=== PATIENT | male | born 1980 | race Caucasian/White ===

== ENCOUNTER 2017-03-24 11:05 | Emergency (ER) | payer OTHER ==
[2017-03-24] MEDS ORDERED: HYOSCYAMINE SULFATE 0.125 MG TAB PO ONE (11:41)
[2017-03-24] MEDS ORDERED: ONDANSETRON 4 MG/2 ML VIAL IVP ONE (11:41)
[2017-03-24] MEDS ORDERED: NS 2,000 ML IV ONE (11:41)
--- NOTE | 2017-03-24 11:46 | EDPHY ---
H & P Time Seen by Provider: 03/24/17 11:23 HPI/ROS: This patient complains of vomiting and diarrhea. He has associated crampy abdominal pain-diffuse. His symptoms started yesterday at 11:00 a.m. with vomiting several episodes until 2:00 p.m.. Symptoms then resolved until 7:00 a.m. this morning when he developed recurrent vomiting-several episodes of yellow appearing emesis. He also developed onset of diarrhea this morning with several episodes of loose watery stool. He is unable tolerating p. o. fluids or food. He notes no exacerbating or alleviating factors for his symptoms. He reports his crampy abdominal pain is moderate in severity and comes in waves. ROS: No high fevers or chills. He does report low-grade subjective fevers. No other constitutional symptoms except myalgias-mild and diffuse HEENT: Nasal congestion over the past week. Mild sore throat Pulmonary: No coughing. No shortness of breath Cardiovascular: No heart palpitations or lightheadedness. GI: No hematemesis or dark tarry stools/blood in stools : No flank pain. He has not been able urinate this morning. He has noticed any urinary symptoms or testicle pain. Integumentary: No skin rash. 10 point ROS is otherwise negative. Source: Patient Exam Limitations: No limitations - Personal History Current Tetanus Diphtheria and Acellular Pertussis (TDAP): Yes Tetanus Vaccine Date: 2014 - Medical/Surgical History PMH: IBS Gastritis Hx Asthma: No Hx Chronic Respiratory Disease: No Hx Diabetes: No Hx Cardiac Disease: No Hx Renal Disease: No Hx Cirrhosis: No Hx Alcoholism: No Hx HIV/AIDS: No Hx Splenectomy or Spleen Trauma: No Other PMH: anxiety, adhd; L hand fx; wisdom teeth extraction - Family History Significant Family History: No pertinent family hx - Social History Smoking Status: Former smoker Alcohol Use: Rarely Drug Use: None Additional Social History: No recent foreign travel. No suspect food His had cold symptoms at the end of the week but no GI symptoms. - Physical Exam Exam: General Appearance: Alert, no distress. Eyes: Pupils equal and round no pallor or injection. ENT, Mouth: Mucous membranes dry. Respiratory: There are no retractions, lungs are clear to auscultation. Cardiovascular: Regular rate and rhythm. Gastrointestinal: Normoactive, soft, diffuse mild tenderness with no guarding or rebound. : No testicular tenderness Back: No CVA tenderness Neurological: Alert with no focal deficits appreciated. Skin: Warm and dry, no rashes. Musculoskeletal: Neck is supple nontender. Extremities are symmetrical, full range of motion. Psychiatric: Mood and affect normal DIFFERENTIAL DIAGNOSIS: After history and physical exam differential diagnosis was considered for viral gastroenteritis, dehydration, IBS flare, food poisoning Constitutional: Initial Vital Signs Temperature (C) 36.4 C 03/24/17 11:13 Heart Rate 77 03/24/17 11:13 Respiratory Rate 20 03/24/17 11:13 Blood Pressure 149/89 H 03/24/17 11:13 O2 Sat (%) 98 03/24/17 11:13 O2 Delivery Mode Room Air Allergies/Adverse Reactions: No Known Allergies Allergy (Verified 03/24/17 11:12) Home Medications: Medication Instructions Recorded Adderall Xr 20 mg Capsule 03/24/17 HYOSCYAMINE SULFATE [LEVSIN-SL] 0.125 - 0.25 mg SL Q6 PRN #20 03/24/17 tab.subl Ondansetron Odt [Zofran Odt] 4 - 8 mg PO Q4PRN PRN #4 tab 03/24/17 Prozac 40 mg 03/24/17 Xanax 03/24/17 Medical Decision Making ED Course/Re-evaluation: IV normal saline bolus x2 L Zofran 4 mg IV with relief of nausea Levsin p.o. Toradol IV with relief of headache, myalgias and abdominal cramps. Patient's basic metabolic panel is consistent with dehydration. No significant electrolyte abnormalities are noted At 1:20 p.m. the patient feels well with resolution of his nausea and cramping. He tolerates p.o. fluids without emesis. I counseled him regarding viral gastroenteritis. - Data Points Laboratory Results: Laboratory Results 03/24/17 11:50 03/24/17 11:50 Sodium 141 mEq/L mEq/L (134-144) Potassium 4.4 mEq/L mEq/L (3.5-5.2) Chloride 106 mEq/L mEq/L (97-110) Carbon Dioxide 18 mEq/l L mEq/l (22-31) Anion Gap 17 mEq/L H mEq/L (8-16) BUN 11 mg/dL mg/dL (7-23) Creatinine 1.0 mg/dL mg/dL (0.7-1.3) Estimated GFR > 60 Glucose 100 mg/dL mg/dL (70-100) Calcium 9.9 mg/dL mg/dL (8.5-10.4) Medications Given: Discontinued Medications Diphenhydramine HCl (Benadryl Injection) 25 mg IVP EDNOW ONE Stop: 03/24/17 12:06 Last Admin: 03/24/17 13:31 Dose: Not Given Hyoscyamine Sulfate (Levsin, Hyomax-Sl) 0.25 mg PO ONCE ONE Stop: 03/24/17 11:42 Last Admin: 03/24/17 12:20 Dose: 0.25 mg Sodium Chloride (Ns) 2,000 mls @ 0 mls/hr IV ONCE ONE PRN Reason: Wide Open Stop: 03/24/17 11:42 Last Admin: 03/24/17 11:30 Dose: 2,000 mls Ketorolac Tromethamine (Toradol) 30 mg IVP EDNOW ONE Stop: 03/24/17 12:33 Last Admin: 03/24/17 12:40 Dose: 30 mg Metoclopramide HCl (Reglan Injection) 5 mg IVP EDNOW ONE Stop: 03/24/17 12:05 Last Admin: 03/24/17 13:30 Dose: Not Given Ondansetron HCl (Zofran) 4 mg IVP EDNOW ONE Stop: 03/24/17 11:42 Last Admin: 03/24/17 11:45 Dose: 4 mg Departure - Departure Disposition: Home, Routine, Self-Care Clinical Impression: Viral gastroenteritis, Dehydration, Abdominal cramping Condition: Good Instructions: Gastroenteritis (ED) Additional Instructions: Diagnosis: 1. Viral gastroenteritis 2. Dehydration 3. Abdominal cramping Plan: Drink plenty fluids Light diet Zofran for nausea vomiting if needed Levsin for cramping if needed Tylenol or ibuprofen for headaches and general aches as needed Your symptoms should improve over the next 1-3 days Return for any significant worsening despite treatment plan. Referrals: KAVITHA POLANCO [Primary Care Provider] - As per Instructions Stand Alone Forms: Work Excuse Prescriptions: HYOSCYAMINE SULFATE [LEVSIN-SL] 0.125 - 0.25 mg SL Q6 PRN #20 tab.subl PRN Reason: abdominal cramping Ondansetron Odt [Zofran Odt] 4 - 8 mg PO Q4PRN PRN #4 tab PRN Reason: Vomiting
[2017-03-24] MEDS ORDERED: METOCLOPRAMIDE 10 MG/2 ML VIAL IVP ONE (12:04)
[2017-03-24 12:10] LABS: ANION GAP 17 mEq/L (8-16); CALCIUM 9.9 mg/dL (8.5-10.4); CARBON DIOXIDE 18 mEq/l (22-31); CHLORIDE 106 mEq/L (97-110); GLOMERULAR FILTRATION RATE > 60; GLUCOSE 100 mg/dL (70-100); POTASSIUM 4.4 mEq/L (3.5-5.2); SODIUM 141 mEq/L (134-144)
[2017-03-24] MEDS ORDERED: KETOROLAC 30 MG/1 ML SDV IVP ONE (12:32)
[2017-03-24 13:56] VITALS: BP 120/62; PULSE 70; RESP 14; TEMP 98.2; O2SAT 94
== END 2017-03-24 13:45 | disposition home or self-care (01) ==
LOC: CED 11:05
DX: A08.4 Viral intestinal infection, unspecified (principal); E86.0 Dehydration; Z87.891 Personal history of nicotine dependence
CPT/HCPCS: 80048-PO; 96374; J1885; J2405

== ENCOUNTER 2017-03-26 10:01 | Inpatient (IN) | payer OTHER ==
--- NOTE | 2017-03-26 10:14 | EDPHY ---
H & P Stated Complaint: Vomiting, diarrhea, and generalized abdominal cramping x 2 days Time Seen by Provider: 03/26/17 10:06 HPI/ROS: CHIEF COMPLAINT: Abdominal pain, vomiting, diarrhea. HISTORY OF PRESENT ILLNESS: The patient is a 36-year-old male with history of irritable bowel syndrome, who presents with severe abdominal pain, vomiting, and diarrhea. The patient was seen here 2 days ago for abdominal cramping, vomiting, and diarrhea. At that time he was having diarrhea every 5-7 minutes. He received IV fluids, Levsin, Toradol, and Zofran in the ED and symptoms improved. Yesterday he felt better with very few episodes of diarrhea. He was able to eat and drink a bit. Around 2am this morning, he started vomiting. Vomit is orange colored. He developed severe crampy abdominal pain 4 hours ago, around 6am this morning. He continues to have diarrhea, but with less frequency and he states it is mostly gas. No history of abdominal surgery. REVIEW OF SYSTEMS: A ten point review of systems was performed and is negative with the exception of the items mentioned in the HPI. Source: Patient Exam Limitations: No limitations - Personal History Current Tetanus Diphtheria and Acellular Pertussis (TDAP): Yes Tetanus Vaccine Date: 2014 - Medical/Surgical History Hx Asthma: No Hx Chronic Respiratory Disease: No Hx Diabetes: No Hx Cardiac Disease: No Hx Renal Disease: No Hx Cirrhosis: No Hx Alcoholism: No Hx HIV/AIDS: No Hx Splenectomy or Spleen Trauma: No Other PMH: IBS,anxiety, adhd; L hand fx; wisdom teeth extraction - Social History Smoking Status: Former smoker Alcohol Use: Rarely Drug Use: None Additional Social History: . Works in construction. - Physical Exam Exam: General Appearance: Alert. Appears uncomfortable. Vital signs reviewed. Eyes: Pupils equal and round, no conjunctival injection, no discharge. Anicteric. ENT, Mouth: Mucous membranes are moist, no oropharyngeal erythema or edema. Neck: No lymphadenopathy, supple. Respiratory: Lungs are clear to auscultation; no wheezes, rales, or rhonchi. Cardiovascular: Regular rate and rhythm; no murmur, rub, or gallop. Gastrointestinal: Bowel sounds present. Abdomen is moderately, diffusely tender without guarding. Mild distension. Skin: Warm and dry, no rashes on exposed skin, normal color. Back: Nontender to palpation over the thoracolumbar spine. No CVAT. Extremities: No lower extremity edema, no calf tenderness or swelling. Neurological: Alert and oriented. Moving all four extremities easily and equally. Psychiatric: Normal affect. Constitutional: Initial Vital Signs Temperature (C) 36.5 C 03/26/17 10:07 Heart Rate 69 03/26/17 10:07 Respiratory Rate 18 03/26/17 10:07 Blood Pressure 125/78 H 03/26/17 10:07 O2 Sat (%) 99 03/26/17 10:07 O2 Delivery Mode Room Air Allergies/Adverse Reactions: No Known Allergies Allergy (Verified 03/26/17 10:11) Home Medications: Medication Instructions Recorded ALPRAZolam [Xanax 0.5 MG (*)] 0.5 mg PO DAILY PRN 03/26/17 Amphet Asp and D/Amphet [Adderall 10 mg PO DAILY@0800 03/26/17 10 MG (*)] Dextroamphetamine/Amphetamine 20 mg PO DAILY@1100 03/26/17 [Adderall Xr 20 mg Capsule] Fluoxetine HCl [Prozac 40 mg] 40 mg PO HS 03/26/17 Acetaminophen [Tylenol 325mg (*)] 650 mg PO Q4HRS PRN #0 tab 03/27/17 Hyoscyamine Sulfate [Levsin] 0.25 mg PO Q6HRS PRN #1 03/27/17 Oxycodone HCl 5 mg PO Q6H PRN #10 capsule 03/27/17 Medical Decision Making - Diagnostics Imaging Results: CT of the abdomen and pelvis reported to me by Dr. Gibson. I reviewed the images. The CT shows evidence of SBO. ED Course/Re-evaluation: The patient is a 36-year-old male with history of IBS presenting with abdominal pain, vomiting, and diarrhea. The patient was seen here 2 days ago with similar symptoms. He was diagnosed with gastroenteritis. He received Zofran, toradol, and Levsin and his symptoms improved. Yesterday the patient felt better. Around 2am this morning the patient's emesis returned. He developed abdominal pain around 6am. The patient tried Zofran which slightly improved his nausea and vomiting. He also took a Levsin. Patient appears uncomfortable. He had an episode of diarrhea in the ED, prior to being brought back to the exam room. On examination the patient has moderately diffuse abdominal tenderness without guarding. IV was established. The patient received IV fluids, 0.5mg Dilaudid, and 4mg Zofran. Lab work ordered. He is afebrile. Blood pressure is normal. He is not tachycardic. He does have dry oral mucosa and states that he has not been able to keep much down over the last few days. 10:48 a.m.: I reevaluated the patient. His pain is slightly improved. He continues to have diffuse abdominal tenderness. 11:03 p.m.: The patient is requesting more pain medication. An additional 0.5mg Dilaudid was ordered. 11:15 a.m.: I reexamined the patient, abdomen is still moderately, diffusely tender. Plan to CT abdomen. 11:45 a.m.: Radiology results were phoned to me by Dr. Gibson. CT of the abdomen /pelvis shows small bowel obstruction. I viewed the images myself on the PACS system. Please see the full radiology report in the imaging section. 11:48 a.m.: I discussed findings with the patient. Patient agrees with the plan for admission. He will be transported emergently via EMS. Other he reports having had a diarrheal stool when he arrived in the waiting room, he has not had flatus or stool since. He has not vomited. 11:55 a.m.: I consulted Dr. Ying, General surgery. Will hold off on NG tube for now. If patient vomits he will need NGT drainage. 12:35 p.m.: The patient will be admitted to the hospitalist, Dr. Lowery. The patient received an additional 0.5mg Dilaudid IV. Differential Diagnosis: Abdominal pain including but not limited to appendicitis, cholecystitis, gastritis, gastroenteritis, and urinary tract infection. - Data Points Laboratory Results: Laboratory Results 03/26/17 10:30 03/26/17 10:30 Medications Given: Discontinued Medications Amphetamine/Dextroamphetamine (Adderall) 20 mg PO DAILY@1100 [facility] Stop: 09/23/17 10:59 Last Admin: 03/27/17 11:34 Dose: 20 mg Fluoxetine HCl (Prozac) 40 mg PO HS [facility] Stop: 09/22/17 22:29 Last Admin: 03/26/17 22:20 Dose: 40 mg Hydromorphone HCl (Dilaudid) 0.5 mg IVP EDNOW ONE Stop: 03/26/17 10:29 Last Admin: 03/26/17 10:35 Dose: 0.5 mg Hydromorphone HCl (Dilaudid) 0.5 mg IVP EDNOW ONE Stop: 03/26/17 11:04 Last Admin: 03/26/17 11:05 Dose: 0.5 mg Hydromorphone HCl (Dilaudid) 0.5 mg IVP EDNOW ONE Stop: 03/26/17 12:37 Last Admin: 03/26/17 12:50 Dose: 0.5 mg Hydromorphone HCl (Dilaudid) 0.2 - 0.4 mg IVP Q4HRS PRN PRN Reason: Pain, Severe Unable to Take PO Stop: 04/05/17 14:45 Last Admin: 03/26/17 16:03 Dose: 0.4 mg Sodium Chloride (Ns) 1,000 mls @ 0 mls/hr IV ONCE ONE PRN Reason: Wide Open Stop: 03/26/17 10:29 Last Admin: 03/26/17 10:33 Dose: 1,000 mls Sodium Chloride (Ns) 1,000 mls @ 0 mls/hr IV ONCE ONE PRN Reason: Wide Open Stop: 03/26/17 10:29 Last Admin: 03/26/17 11:45 Dose: 1,000 mls Sodium Chloride (Ns) 1,000 mls @ 125 mls/hr IV CONT LILI Stop: 09/22/17 14:59 Last Admin: 03/27/17 10:30 Dose: 1,000 mls Ondansetron HCl (Zofran) 4 mg IVP EDNOW ONE Stop: 03/26/17 10:29 Last Admin: 03/26/17 10:35 Dose: 4 mg Ondansetron HCl (Zofran) 4 mg IVP Q4HRS PRN PRN Reason: Nausea/Vomiting, Can't Take PO Stop: 09/22/17 14:45 Last Admin: 03/26/17 16:03 Dose: 4 mg Departure - Departure Disposition: [facility] Clinical Impression: Small bowel obstruction Condition: Fair Report Scribed for: Vickie Grace Report Scribed by: Louisa Mead Date of Report: 03/26/17 Time of Report: 10:32 Physician Review and Approval Statement: 03/26/17 10:14 Portions of this note were transcribed by the medical record librarian. I, Dr. Vickie Grace, personally performed the history, physical exam, and medical decision- making; and confirmed the accuracy of the information in the transcribed note.
[2017-03-26] MEDS ORDERED: ONDANSETRON 4 MG/2 ML VIAL IVP ONE (10:28)
[2017-03-26] MEDS ORDERED: HYDROmorphONE/DILAUDID 1 MG/ML SYR IVP ONE ×3 (10:28→12:36)
[2017-03-26] MEDS ORDERED: NS 1,000 ML IV ONE ×2 (10:28)
[2017-03-26 10:37] LABS: % IMMATURE GRANULYOCYTES 0.3 % (0.0-1.1); ABSOLUTE IMMATURE GRANULOCYTES 0.05 10^3/uL (0.00-0.10); ADD DIFF? NO; ADD MORPH? NO; ADD SCAN? NO; ATYPICAL LYMPHOCYTE FLAG 20 (0-99); FRAGMENT RBC FLAG 0 (0-99); HEMATOCRIT 46.4 % (40.0-51.0); LEFT SHIFT FLG 0 (0-99); LIPEMIA HEMOLYSIS FLAG 90 (0-99); MEAN CELL HEMOGLOBIN 29.7 pg (27.9-34.1); MEAN CELL HEMOGLOBIN CONCENTR. 34.5 g/dL (32.4-36.7); MEAN CELL VOLUME 86.2 fL (81.5-99.8); MEAN PLATELET VOLUME 10.3 fL (8.7-11.7); PLATELET CLUMPS FLAG 0 (0-99); PLATELET COUNT 321 10^3/uL (150-400); RED BLOOD CELL COUNT 5.38 10^6/uL (4.40-6.38); RED CELL DISTRIBUTION WIDTH 12.3 % (11.5-15.2)
[2017-03-26 10:51] LABS: ALANINE AMINOTRANSFERASE 46 IU/L (21-72); ALBUMIN 4.1 g/dL (3.5-5.0); ALKALINE PHOSPHATASE 132 IU/L (38-126); ANION GAP 17 mEq/L (8-16); ASPARTATE AMINOTRANSFERASE 28 IU/L (17-59); BILIRUBIN,TOTAL 0.5 mg/dL (0.1-1.4); BILIRUBIN-CONJUGATED 0.3 mg/dL (0.0-0.5); BILIRUBIN-UNCONJUGATED 0.2 mg/dL (0.0-1.1); CALCIUM 9.3 mg/dL (8.5-10.4); CARBON DIOXIDE 21 mEq/l (22-31); CHLORIDE 106 mEq/L (97-110); CREATININE 0.9 mg/dL (0.7-1.3); GLOMERULAR FILTRATION RATE > 60; GLUCOSE 91 mg/dL (70-100); POTASSIUM 4.2 mEq/L (3.5-5.2); SODIUM 144 mEq/L (134-144); TOTAL PROTEIN 7.6 g/dL (6.3-8.2)
[2017-03-26] MEDS ORDERED: IOPAMIDOL (ISOVUE-300) 100 ML BTL IV ONE (11:24)
[2017-03-26] MEDS ORDERED: PROMETHAZINE HCL 25 MG TAB PO PRN (14:46)
[2017-03-26] MEDS ORDERED: LORazepam 0.5 MG TAB PO PRN (14:46)
[2017-03-26] MEDS ORDERED: ACETAMINOPHEN 325 MG TAB PO PRN (14:46)
[2017-03-26] MEDS ORDERED: ONDANSETRON 4 MG/2 ML VIAL IVP PRN (14:46)
[2017-03-26] MEDS ORDERED: HYDROmorphONE/DILAUDID 1 MG/ML SYR IVP PRN (14:46)
[2017-03-26] MEDS ORDERED: ONDANSETRON DISINTEGRATING 4 MG TAB PO PRN (14:46)
[2017-03-26] MEDS ORDERED: oxyCODONE IR 5 MG TAB PO PRN (14:46)
--- NOTE | 2017-03-26 16:44 | PDGENHP ---
History and Physical - Chief Complaint abdominal pain/n/v - History of Present Illness 36 yo M hx of IBS presenting with severe abdominal pain/n/v that has been present for the last several days. He was seen in the ER initially on 03/24 and his sxs resolved with antiemetics and he was sent home. He returned today with increasing pain along with n/v and inability to tolerate PO. the pain is in the midepigastrium, is constant and severe. It is worse with eating. He has never had similar sxs in the past. He has had subjective fever and chills. He has not had a bm today and is not passing gas. His BMs prior to today have been normal fo rhim. He notes that his IBS sxs have improved since starting prozac 4 months ago. He has had a colonoscopy 3 years ago that was notable only for polyps, no e /o crohn's or UC though he has a family history of both. History Information - Allergies/Home Medication List Allergies/Adverse Reactions: No Known Allergies Allergy (Verified 03/26/17 10:11) Home Medications: Adderall Xr 20 mg Capsule 03/24/17 [Last Taken Unknown] Prozac 40 mg 03/24/17 [Last Taken Unknown] Xanax 03/24/17 [Last Taken Unknown] HYOSCYAMINE SULFATE [LEVSIN-SL] 03/26/17 [Last Taken Unknown] I have personally reviewed and updated: family history, medical history, social history, surgical history - Past Medical History psychiatric history (anxiety/depression/adhd) Additional medical history: IBS - Surgical History Additional surgical history: hand surgery - Family History Additional family history: aunts/uncles on both sides with UC/crohn's. mother with GB issues - Social History Smoking Status: Former smoker Alcohol Use: Rarely Drug Use: None Additional social history: , 2 kids Review of Systems ROS: 10pt was reviewed & negative except for what was stated in HPI & below Physical Exam Temp Pulse Resp BP Pulse Ox 36.6 C 64 20 121/73 H 97 03/26/17 16:15 03/26/17 16:15 03/26/17 16:15 03/26/17 16:15 03/26/17 16:15 Constitutional: no apparent distress, appears nourished Eyes: PERRL Ears, Nose, Mouth, Throat: moist mucous membranes, hearing normal Cardiovascular: regular rate and rhythym, no murmur, rub, or gallop, No edema Respiratory: no respiratory distress, no rales or rhonchi, clear to auscultation Gastrointestinal: tenderness, No normoactive bowel sounds, No ascites, No rebound, No distension Genitourinary: no bladder tenderness Skin: warm, normal color Musculoskeletal: full muscle strength Neurologic: AAOx3 Psychiatric: interacting appropriately, not anxious, not encephalopathic Lab Data & Imaging Review 03/26/17 10:30 03/26/17 10:30 WBC 15.95 10^3/uL (3.80-9.50) H 03/26/17 10:30 RBC 5.38 10^6/uL (4.40-6.38) 03/26/17 10:30 Hgb 16.0 g/dL (13.7-17.5) 03/26/17 10:30 Hct 46.4 % (40.0-51.0) 03/26/17 10:30 MCV 86.2 fL (81.5-99.8) 03/26/17 10:30 MCH 29.7 pg (27.9-34.1) 03/26/17 10:30 MCHC 34.5 g/dL (32.4-36.7) 03/26/17 10:30 RDW 12.3 % (11.5-15.2) 03/26/17 10:30 Plt Count 321 10^3/uL (150-400) 03/26/17 10:30 MPV 10.3 fL (8.7-11.7) 03/26/17 10:30 Neut % (Auto) 73.1 % (39.3-74.2) 03/26/17 10:30 Lymph % (Auto) 16.9 % (15.0-45.0) 03/26/17 10:30 [place] % (Auto) 8.2 % (4.5-13.0) 03/26/17 10:30 Eos % (Auto) 1.4 % (0.6-7.6) 03/26/17 10:30 Baso % (Auto) 0.1 % (0.3-1.7) L 03/26/17 10:30 Nucleat RBC Rel Count 0.0 % (0.0-0.2) 03/26/17 10:30 Absolute Neuts (auto) 11.67 10^3/uL (1.70-6.50) H 03/26/17 10:30 Absolute Lymphs (auto) 2.69 10^3/uL (1.00-3.00) 03/26/17 10:30 Absolute Monos (auto) 1.30 10^3/uL (0.30-0.80) H 03/26/17 10:30 Absolute Eos (auto) 0.22 10^3/uL (0.03-0.40) 03/26/17 10:30 Absolute Basos (auto) 0.02 10^3/uL (0.02-0.10) 03/26/17 10:30 Absolute Nucleated RBC 0.00 10^3/uL (0-0.01) 03/26/17 10:30 Immature Gran % 0.3 % (0.0-1.1) 03/26/17 10:30 Immature Gran # 0.05 10^3/uL (0.00-0.10) 03/26/17 10:30 Sodium 144 mEq/L (134-144) 03/26/17 10:30 Potassium 4.2 mEq/L (3.5-5.2) 03/26/17 10:30 Chloride 106 mEq/L (97-110) 03/26/17 10:30 Carbon Dioxide 21 mEq/l (22-31) L 03/26/17 10:30 Anion Gap 17 mEq/L (8-16) H 03/26/17 10:30 BUN 15 mg/dL (7-23) 03/26/17 10:30 Creatinine 0.9 mg/dL (0.7-1.3) 03/26/17 10:30 Estimated GFR > 60 03/26/17 10:30 Glucose 91 mg/dL (70-100) 03/26/17 10:30 Calcium 9.3 mg/dL (8.5-10.4) 03/26/17 10:30 Total Bilirubin 0.5 mg/dL (0.1-1.4) 03/26/17 10:30 Conjugated Bilirubin 0.3 mg/dL (0.0-0.5) 03/26/17 10:30 Unconjugated Bilirubin 0.2 mg/dL (0.0-1.1) 03/26/17 10:30 AST 28 IU/L (17-59) 03/26/17 10:30 ALT 46 IU/L (21-72) 03/26/17 10:30 Alkaline Phosphatase 132 IU/L (38-126) H 03/26/17 10:30 Total Protein 7.6 g/dL (6.3-8.2) 03/26/17 10:30 Albumin 4.1 g/dL (3.5-5.0) 03/26/17 10:30 Lipase 40.0 IU/L (23-300) 03/26/17 10:30 Visualized and Interpreted imaging results: Yes Interpretation: abd ct: with early or partial sbo ileum Assessment & Plan Assessment: Small bowel obstruction (Acute) 36 yo M with PMH of IBS presenting with sbo # sbo: noted on ct, improved with ngt placement. Will treat conservatively with bowel rest, ng to suction, IV fluids, antiemetics and IV opiates as needed. Surgery consulted and recs are pending. Etiology is unclear--query if his chronic abdominal issues truly inflammatory bowel disease rather than IBS and patient with strictures related to same. Will consider GI consultation pending surgery recs. Sees Dr. Dahl. # IBS: as above, on hyoscyamine and prozac which have improved his chronic issues, last colonoscopy 3 years ago, EGD many years ago. # depression/anxiety/adhd: continue op medications, all appear well controlled # leukocytosis: without s/s of infection otherwise, likely stress response in setting of above # IP status, will need more than 48 hours stay for eval/mgmt of above, high risk requiring IV opiates and close monitoring Patient new to my care. old records reviewed/summarized as above. Care plan reviewed with ER doctor as above, further hx obtained from present at bedside.
[2017-03-26] MEDS ORDERED: FLUoxetine 20 MG CAP PO SCH (22:30)
--- NOTE | 2017-03-26 23:57 | GCON ---
[f rep st] CONSULTATION REFERRING PHYSICIAN: Juan Lowery MD REASON FOR CONSULTATION: Ruled out small-bowel obstruction. HISTORY: The patient is a 36-year-old male who was in his usual state of good health until Saturday at noon (today is Saturday). He had 2 breakfast burritos for breakfast. He has not any recent mehnaz el. He has had rhinorrhea for the last 2 weeks. He has irritable bowel disease, and usually moves his bowels twice a day. He has had no prior abdominal surgery, and no prior similar symptoms. At a pproximately noon, he had the onset of 4-5 episodes of diarrhea. Saturday evening at 7-8, he develo ped nausea. He woke up overnight several times with diarrhea. Saturday morning he vomited 5-7 times, and did go to the hospital at 10 a.m. They gave him fluids, Zofran and Levsin (his usual antiperis taltic for his irritable bowel syndrome). That night he felt much better, and did have chicken brot h and slept. On Saturday morning at 4 a.m., he had the onset of approximately 6 episodes of diarrhea. One hour later, he vomited 2-3 times. Saturday he did eat tacos and pizza. At 1 a.m. Saturday sara magaña, he did have diarrhea again and vomited again. At 9 a.m., he came to the emergency room. He is a nonsmoker, but does chew tobacco. Drinks alcohol on a rare occasion. ALLERGIES: He has an adverse reaction to milk as it "hurts his stomach." MEDICATIONS: He takes Adderall 10 mg every morning, and extended release 20 mg every 10 a.m. He ta kes Prozac 40 mg at bedtime, and Xanax 0.5 mg p.r.n. PAST SURGICAL HISTORY: Include a right hand surgery for repair of extensor tendon injury, and he finn s had wisdom tooth extraction. No history of rheumatic fever, tuberculosis, hepatitis, HIV or trans fusions. REVIEW OF SYSTEMS: He has acid reflux approximately once a week. He does hay fever. He has had po lyps on colonoscopy, and he has had some rectal bleeding. His last colonoscopy was 3 years ago. He was seen at [facility]. He was [facility] to [facility] because the CAT sc an reportedly showed a small-bowel obstruction. PHYSICAL EXAMINATION: GENERAL: He is awake and alert. Additional note is made that he moved his b owels and passed gas this morning. An NG tube is in place and he has moved his bowels since arrival . The NG tube initially put 500 cc out, but he is not draining anything at this time. HEENT: Yadi andrews is normocephalic and atraumatic. NEUROLOGIC: He is awake, alert, and oriented. There are no foc al lateralizing neurologic findings. NECK: Thyroid is not enlarged. Neck is supple, nontender. L YMPH: There is no cervical, supraclavicular, axillary or inguinal lymphadenopathy. LUNGS: Clear t o auscultation. CARDIAC: Shows S1, S2 to be normal, with normal split S2. ABDOMEN: Rotund. I do not appreciate tympany or tenderness. He has normoactive bowel sounds, and does not have any herni as. LABORATORY DATA: His white count is 15,000, with 73% neutrophils. His alkaline phosphatase is elev ated at 132. On examining his CAT scan, he certainly on the CAT scan did have a stomach full of fluid, and an int ermittently dilated small bowel, with thickened small-bowel wall in the right upper quadrant, and me senteric adenitis. IMPRESSION: Understanding his course, including his antecedent upper respiratory infection , I susp ect that this is an enteritis, possibly viral or bacterial in nature, which was converted to a patte rn, which appeared on CT, to be a small-bowel obstruction due to the antiperistaltic effect of the L evsin. The fact that he is moving his bowels at this point is consistent with this supposition. I recommend that we obtain stools for enteric pathogens, that we keep his NG tube in place overnight, and that we continue hydration. If he is doing well in the morning, I would not even obtain an aparna tional flat and upright x-ray. If there is any question, then that of course would be appropriate. /[id number]/MODL
[2017-03-27] MEDS: NS 1,000 ML IV SCH ×2 (02:21→10:30)
[2017-03-27 05:15] LABS: % IMMATURE GRANULYOCYTES 0.9 % (0.0-1.1); ABSOLUTE IMMATURE GRANULOCYTES 0.08 10^3/uL (0.00-0.10); ADD DIFF? NO; ADD MORPH? NO; ADD SCAN? NO; ATYPICAL LYMPHOCYTE FLAG 50 (0-99); FRAGMENT RBC FLAG 0 (0-99); HEMATOCRIT 41.9 % (40.0-51.0); HEMOGLOBIN 14.2 g/dL (13.7-17.5); LEFT SHIFT FLG 10 (0-99); LIPEMIA HEMOLYSIS FLAG 90 (0-99); MEAN CELL HEMOGLOBIN 29.5 pg (27.9-34.1); MEAN CELL HEMOGLOBIN CONCENTR. 33.9 g/dL (32.4-36.7); MEAN CELL VOLUME 86.9 fL (81.5-99.8); MEAN PLATELET VOLUME 10.5 fL (8.7-11.7); PLATELET CLUMPS FLAG 0 (0-99); PLATELET COUNT 257 10^3/uL (150-400); RED BLOOD CELL COUNT 4.82 10^6/uL (4.40-6.38); RED CELL DISTRIBUTION WIDTH 12.5 % (11.5-15.2)
[2017-03-27 05:34] LABS: ANION GAP 8 mEq/L (8-16); CALCIUM 9.1 mg/dL (8.5-10.4); CARBON DIOXIDE 24 mEq/l (22-31); CHLORIDE 108 mEq/L (97-110); CREATININE 0.9 mg/dL (0.7-1.3); GLOMERULAR FILTRATION RATE > 60; GLUCOSE 83 mg/dL (70-100); MAGNESIUM 1.9 mg/dL (1.6-2.3); POTASSIUM 4.5 mEq/L (3.5-5.2); SODIUM 140 mEq/L (134-144)
[2017-03-27 08:16] VITALS: BP 137/79; PULSE 76; RESP 16; TEMP 97.8; O2SAT 96
[2017-03-27] MEDS ORDERED: ALPRAZolam 0.5 MG TAB PO PRN (08:28)
--- NOTE | 2017-03-27 09:57 | SOAPPROG ---
SOAP Progress Note Assessment/Plan: 03/27/17 09:53 Assessment: Doing much better! Stool virology studies positive. Abdomen soft. Plan: Try NG clamping. Subjective: I feel much better Objective: Vital Signs Temp Pulse Resp BP Pulse Ox 36.6 C 76 16 137/79 H 96 03/27/17 08:00 03/27/17 08:00 03/27/17 08:00 03/27/17 08:00 03/27/17 08:00 Microbiology 03/26/17 18:30 Gastrointestinal Tract Panel (PCR) - Final Stool Sapovirus Laboratory Results 03/27/17 04:39 03/27/17 04:39 03/26/17 03/27/17 03/28/17 05:59 05:59 05:59 Intake Total 3050 Output Total 1630 Balance 1420 - Time Spent With Patient Time Spent With Patient: 15 minutes Physical Exam - Physical Exam Abdomen: normal bowel sounds, non-tender, soft ICD10 Worksheet Patient Problems: Problems Problem Status Onset Small bowel obstruction Acute
[2017-03-27] MEDS ORDERED: ADDERALL 10 MG TAB PO SCH (11:00)
[2017-03-27] MEDS ORDERED: DEXTROAMPHETAMINE PO SCH (11:00)
[2017-03-27] MEDS ORDERED: [UNRECOGNIZED DRUG - OTHER] PO SCH (11:00)
[2017-03-27] MEDS ORDERED: AMPHETAMINE PO SCH (11:00)
--- NOTE | 2017-03-27 12:21 | HOSPPROG ---
Hospitalist Progress Note Assessment/Plan: 36 yo M w/hx of IBS presenting with n/v/abdominal pain in the setting of preceding diarrheal illness # sbo: with etiology presumed to be viral gastroenteritis complicated by levsin use leading to partial sbo likely 2/2 paralytic ileus. NGT placed yesterday with significant improvement in sxs. Overnight bowel function returned with patient passing gas and having bm, tolerated clamp trial this am without increased pain or n/v. NGT out, advancing diet. Likely can dc later today if tolerates diet. # sapovirus gastroenteritis: found on GI pathogen panel, initiated his presenting illness, is improving symptomatically and will continue conservative mgmt. As above, if tolerating po w/o recurrent n/v and so long as diarrhea does not become severe, he will likely be able to dc today. # IBS: followed by Dr. Dahl of GI, currently on levsin, holding for now but can resume in the next week as long as n/v/diarrhea completely resolved. # depression/anxiety/ADHD: continue home medications # dispo: dc home likely today so long as tolerating diet Care plan reviewed with Dr. Ying at patients bedside. Care plan reviewed with present at bedside. Subjective: patient feeling better today, pain decreased, not having n/v even when NG clamped Objective: Vital Signs Temp Pulse Resp BP Pulse Ox 36.6 C 76 16 137/79 H 96 03/27/17 08:00 03/27/17 08:00 03/27/17 08:00 03/27/17 08:00 03/27/17 08:00 Microbiology 03/26/17 18:30 Gastrointestinal Tract Panel (PCR) - Final Stool Sapovirus Laboratory Results 03/27/17 04:39 03/27/17 04:39 03/26/17 03/27/17 03/28/17 05:59 05:59 05:59 Intake Total 1000 Output Total 1130 Balance -130 awake alert anicteric op clear, ngt in place with about 1L out overnight of dark/green liquid rrr no mrg cta b soft bs present non tender no cce warm dry well perfused oriented appropriate - Time Spent With Patient Time Spent with Patient: greater than 35 minutes Time Spent with Patient: Greater than 35 minutes spent on this patients care, greater than 50% of time spent counseling, educating, and coordinating care regarding the above mentioned plan. ICD10 Worksheet Patient Problems: Problems Problem Status Onset Small bowel obstruction Acute
--- NOTE | 2017-03-27 15:11 | PDDCSUM ---
Discharge Summary Discharge Summary: Dates of service 03/26-03/27/17 Consultations: general surgery Procedures performed: abd ct Hospital course by problem: 36 yo M w/hx of IBS presenting with n/v/abdominal pain in the setting of preceding diarrheal illness # sbo: with etiology presumed to be viral gastroenteritis complicated by levsin use leading to partial sbo likely 2/2 paralytic ileus. ng out and tolerating diet without issues. # sapovirus gastroenteritis: found on GI pathogen panel, initiated his presenting illness, tolerating diet, n/v resolved # IBS: followed by Dr. Dahl of GI, currently on levsin, holding for now but can resume in the next week as long as n/v/diarrhea completely resolved. # depression/anxiety/ADHD: continue home medications DC home > 35 minutes spent in dc more than half in face to face counseling of patient and regarding dx and f/u care plan
[2017-03-28] MEDS ORDERED: ADDERALL 10 MG TAB PO SCH (08:00)
== END 2017-03-27 17:07 | disposition home or self-care (01) | DRG 392 ==
LOC: CED 10:01 → CEDHOLD 12:36 → F3E 14:28 → OBSVTOIN 14:48
PROVIDERS: ADMIT Family Medicine; ATTEND Internal Medicine
DX: A08.4 Viral intestinal infection, unspecified (principal); K56.0 Paralytic ileus; K58.9 Irritable bowel syndrome, unspecified; F41.8 Other specified anxiety disorders; F90.9 Attention-deficit hyperactivity disorder, unspecified type
CPT/HCPCS: 74177-PO; 80048-PO; 80076-PO; 83690-PO; 85025-PO; 96374; J1170; J2405; Q9967

== ENCOUNTER 2017-11-18 04:22 | Observation (INO) | payer OTHER ==
[2017-11-18] MEDS ORDERED: ONDANSETRON 4 MG/2 ML VIAL IVP ONE (04:37)
[2017-11-18] MEDS ORDERED: NS 500 ML IV ONE ×2 (04:37→04:54)
[2017-11-18 04:52] LABS: % IMMATURE GRANULYOCYTES 0.2 % (0.0-1.1); ABSOLUTE IMMATURE GRANULOCYTES 0.02 10^3/uL (0.00-0.10); ADD DIFF? NO; ADD MORPH? NO; ADD SCAN? NO; ATYPICAL LYMPHOCYTE FLAG 0 (0-99); FRAGMENT RBC FLAG 0 (0-99); HEMATOCRIT 45.9 % (40.0-51.0); HEMOGLOBIN 15.6 g/dL (13.7-17.5); LEFT SHIFT FLG 0 (0-99); LIPEMIA HEMOLYSIS FLAG 90 (0-99); MEAN CELL HEMOGLOBIN 29.2 pg (27.9-34.1); MEAN CELL VOLUME 85.8 fL (81.5-99.8); PLATELET CLUMPS FLAG 10 (0-99); PLATELET COUNT 329 10^3/uL (150-400); RED BLOOD CELL COUNT 5.35 10^6/uL (4.40-6.38); RED CELL DISTRIBUTION WIDTH 12.3 % (11.5-15.2)
[2017-11-18 05:05] LABS: ALANINE AMINOTRANSFERASE 45 IU/L (21-72); ALKALINE PHOSPHATASE 117 IU/L (38-126); ANION GAP 15 mEq/L (8-16); ASPARTATE AMINOTRANSFERASE 20 IU/L (17-59); BILIRUBIN,TOTAL 0.8 mg/dL (0.1-1.4); CALCIUM 9.5 mg/dL (8.5-10.4); CARBON DIOXIDE 19 mEq/l (22-31); CHLORIDE 106 mEq/L (97-110); CREATININE 0.8 mg/dL (0.7-1.3); GLOMERULAR FILTRATION RATE > 60; GLUCOSE 109 mg/dL (70-100); POTASSIUM 4.4 mEq/L (3.5-5.2); SODIUM 140 mEq/L (134-144); TOTAL PROTEIN 7.2 g/dL (6.3-8.2)
--- NOTE | 2017-11-18 05:09 | EDPHY ---
H & P Time Seen by Provider: 11/18/17 04:46 HPI/ROS: CC: Abdominal pain, nausea, vomiting and diarrhea for 2 days HPI: This 37-year-old male with past medical history of irritable bowel syndrome and a paralytic ileus 7 months ago thought to be due to a combination of a sapovirus as well as Levsin presents to the emergency department today for 2 days of nausea, vomiting, diarrhea as well as diffuse abdominal pain worse in the epigastric region. He states the nausea came on first and he felt hot but did not have a fever. Then he started vomiting and having diarrhea every 45 min. He states that increased yesterday when he tried to ingest an electrolyte solution. He did not seen blood in the vomit or the stool. The abdominal pain is rated at 7/10. He describes it as sharp and diffuse but worse in the epigastric region. He has not taken myyl-hyj-guudfoj medications. He is not currently taking the Levsin and has not taken it since March. He had a colonoscopy a few years ago which showed polyps but he states he had a repeat colonoscopy just last week and it was "clear." No chest, neck, jaw or arm pain. No excessive alcohol use. No ill contacts. REVIEW OF SYSTEMS: Constitutional: No fever, no chills. Eyes: No discharge. ENT: No sore throat. Respiratory: No cough, no shortness of breath. Cardiac: No chest pain, no palpitations. Gastrointestinal: SEE HPI. Genitourinary: No hematuria. Musculoskeletal: No back pain. Skin: No rashes. Neurological: No headache. Past Medical/Surgical History: PMH: Irritable Bowel Syndrome; Paralytic Ileus d/t Sapovirus combined with Levsin use PSH: Right hand Surgery FH: Aunt/Uncle with Crohn's Disease and Ulcerative Colitis. Father had pre- diabetes which has resolved. Mother - Gallbladder issues. NKDA but milk intolerant Meds: Vyvance 60mg daily; Prozac 40mg at HS (has not taken Levsin since March 2017 and has not been taking the Xanax either.) Social History: Former smoker; Rare ETOH; No marijuana or other drugs. . Smoking Status: Former smoker Physical Exam: General Appearance: Alert, mild distress. Eyes: Pupils equal and round no pallor or injection. ENT, Mouth: Mucous membranes are moist. Respiratory: There are no retractions, lungs are clear to auscultation. Cardiovascular: Regular rate and rhythm. No murmurs. Gastrointestinal: Abdomen is slightly distended, tympanic to percussion. Diffusely tender to palpation. Normal bowel sounds. No palpable masses. No rebound, guarding or rigidity. Neurological: Awake and alert, sensory and motor exams grossly normal. Skin: Warm and dry, no rashes. Musculoskeletal: Neck is supple nontender. Extremities are symmetrical, full range of motion. Psychiatric: Patient is oriented X 3, there is no agitation. DIFFERENTIAL DIAGNOSIS: After history and physical exam differential diagnosis was considered for [viral gastroenteritis, bacterial gastroenteritis, irritable bowel, paralytic ileus, bowel obstruction. Inflammatory bowel disease unlikely due to normal colonoscopy less than a week ago.] Constitutional: Initial Vital Signs Temperature (C) 98.1 F 11/18/17 04:34 Heart Rate 87 11/18/17 04:34 Respiratory Rate 16 11/18/17 04:34 Blood Pressure 137/74 H 11/18/17 04:34 O2 Sat (%) 95 11/18/17 04:34 O2 Delivery Mode Room Air Allergies/Adverse Reactions: No Known Allergies Allergy (Verified 11/18/17 04:32) Home Medications: Medication Instructions Recorded Fluoxetine HCl [Prozac 40 mg] 40 mg PO HS 03/26/17 Acetaminophen [Tylenol 325mg (*)] 650 mg PO Q4HRS PRN #0 tab 03/27/17 Prozac 10 MG (*) 11/18/17 Vyvanse 11/18/17 Medical Decision Making - Diagnostics Imaging Results: Plain films of abdomen show multiple air/fluid levels with a dilated loop of bowel in central abdomen by my read. CT Abd/Pelvis with contrast verbal by Dr. Gibson (please review final dictated report): Partial small bowel obstruction with dilated loops of bowel in the left upper quadrant, proximal jejunum, measuring 3.2 cm. The terminal ileum is decompressed. No free air or abscess. Imaging: I viewed and interpreted images myself ED Course/Re-evaluation: The patient was re-evaluated and he is feeling somewhat better. No episodes of vomiting or diarrhea while in the ER after receiving Zofran. The patient also received a L of IV fluids and Toradol 15mg IVP. His CBC showed a minimally elevated white blood cell count and a monocytosis, his chemistry panel was remarkable for only a mild a decrease in his bicarb (19). His lipase and liver function tests are normal. Plain films of the abdomen showed dilated loops of bowel in multiple air-fluid levels. A CT scan of the abdomen and pelvis per verbal report from radiologist, Dr. Gibson (please review final dictated report) , shows a partial small bowel obstruction with 3.2 cm dilated loops of bowel in the left upper quadrant, proximal jejunum. The terminal ileum is decompressed. There is no free air or abscess. The patient has elected to drive himself by private operating vehicle to the [facility] for observation. He understands he is to remain NPO and make no stops on the way. He understands the risks of transporting himself to the other facility. The hospitalist, Dr. Courtney Bella, [facility] contact General Surgery once the patient arrives at the [facility]. Consult/Admit Bed Type: Hospitalist Courtney Bella/General Medical OBS - Data Points Laboratory Results: Laboratory Results 11/18/17 04:45 11/18/17 11/18/17 04:45 04:45 WBC 10.47 10^3/uL H 10^3/uL (3.80-9.50) RBC 5.35 10^6/uL 10^6/uL (4.40-6.38) Hgb 15.6 g/dL g/dL (13.7-17.5) Hct 45.9 % % (40.0-51.0) MCV 85.8 fL fL (81.5-99.8) MCH 29.2 pg pg (27.9-34.1) MCHC 34.0 g/dL g/dL (32.4-36.7) RDW 12.3 % % (11.5-15.2) Plt Count 329 10^3/uL 10^3/uL (150-400) MPV 10.0 fL fL (8.7-11.7) Neut % (Auto) 72.1 % % (39.3-74.2) Lymph % (Auto) 16.9 % % (15.0-45.0) [place] % (Auto) 8.6 % % (4.5-13.0) Eos % (Auto) 2.1 % % (0.6-7.6) Baso % (Auto) 0.1 % L % (0.3-1.7) Nucleat RBC Rel Count 0.0 % % (0.0-0.2) Absolute Neuts (auto) 7.55 10^3/uL H 10^3/uL (1.70-6.50) Absolute Lymphs (auto) 1.77 10^3/uL 10^3/uL (1.00-3.00) Absolute Monos (auto) 0.90 10^3/uL H 10^3/uL (0.30-0.80) Absolute Eos (auto) 0.22 10^3/uL 10^3/uL (0.03-0.40) Absolute Basos (auto) 0.01 10^3/uL L 10^3/uL (0.02-0.10) Absolute Nucleated RBC 0.00 10^3/uL 10^3/uL (0-0.01) Immature Gran % 0.2 % % (0.0-1.1) Immature Gran # 0.02 10^3/uL 10^3/uL (0.00-0.10) Sodium Pending Potassium Pending Chloride Pending Carbon Dioxide Pending Anion Gap Pending BUN Pending Creatinine Pending Estimated GFR Pending Glucose Pending Calcium Pending Total Bilirubin Pending AST Pending ALT Pending Alkaline Phosphatase Pending Total Protein Pending Albumin Pending Lipase Pending Medications Given: Sodium Chloride (Ns) 500 mls @ 1,000 mls/hr IV ONCE ONE PRN Reason: Protocol Stop: 11/18/17 05:06 Last Admin: 11/18/17 04:44 Dose: 500 mls Discontinued Medications Sodium Chloride (Ns) 500 mls @ 0 mls/hr IV EDNOW ONE; Wide Open PRN Reason: Protocol Stop: 11/18/17 04:55 Last Admin: 11/18/17 04:56 Dose: 500 mls Ondansetron HCl (Zofran) 4 mg IVP EDNOW ONE Stop: 11/18/17 04:38 Last Admin: 11/18/17 04:44 Dose: 4 mg Departure - Departure Disposition: [place] [facility] Clinical Impression: Partial small bowel obstruction Condition: Good Instructions: Bowel Obstruction (ED) Additional Instructions: Go directly to the [facility] as instructed. No stops or anything to eat or drink en route. Referrals: Patient,NotPresent [Primary Care Provider] - As per Instructions
[2017-11-18] MEDS ORDERED: KETOROLAC 15 MG/1 ML SDV IVP ONE (05:14)
[2017-11-18] MEDS ORDERED: IOPAMIDOL (ISOVUE-300) 100 ML BTL ONE (05:49)
[2017-11-18] MEDS ORDERED: oxyCODONE IR 5 MG TAB PO PRN (08:54)
[2017-11-18] MEDS ORDERED: HYDROmorphONE/DILAUDID 1 MG/ML INJ IVP PRN (08:54)
[2017-11-18] MEDS ORDERED: ACETAMINOPHEN 325 MG TAB PO PRN (08:54)
[2017-11-18] MEDS ORDERED: LORazepam 0.5 MG TAB PO PRN (08:54)
[2017-11-18] MEDS ORDERED: ONDANSETRON 4 MG/2 ML VIAL IVP PRN (08:54)
[2017-11-18] MEDS ORDERED: PROMETHAZINE HCL 25 MG/ML INJ IVP PRN (08:54)
[2017-11-18] MEDS ORDERED: ONDANSETRON DISINTEGRATING 4 MG TAB PO PRN (08:54)
[2017-11-18] MEDS ORDERED: NS 1,000 ML IV SCH (09:00)
--- NOTE | 2017-11-18 10:23 | PDCONSULT ---
Application Security Consultant Note: Surgical Consult was requested by Dr. Lowery. Andriy presented to the ED with a 2 day history of diarrhea and crampy abdominal pain. A CT in the ED showed possible SBO. His pain is improved after emesis and parenteral analgesics. His last BM was 0700. PMH: colon polyps -last colonoscopy 5 days ago (Dr. Sewell) no prior abdominal surgery NKDA ROS: negative hematochezia/hemetemesis SH: here with family PE: pleasant young man in mild distress + BS, diffuse abd tenderness to palpation without guarding/rebound no percussion tenderness no obvious hernia, mass, no HSM Imp: abd pain/diarrhea-clinically suggestive of enteritis SBO much less likely with no prior history of abdominal surgery Rec: SBFT discussed with patient and family S MD Jose, FACS
--- NOTE | 2017-11-18 12:15 | PDGENHP ---
History and Physical - Chief Complaint abd pain/n/v - History of Present Illness 37 yo M with PMH of IBS and prior episode of partial sbo versus paralytic ileus presumed 2/2 sapovirus presenting with n/v/abd pain x 3 days that have been in creasing in severity over that time. Patient states that the pain is diffuse and intermittently severe, he has been unable to eat very much while this is happening. He has been also having frequent watery stools along with this episode. He notes this is somewhat similar to what he experienced the last time he was admitted with presumed sbo. He had a colonoscopy last week for f/u of a prior colonoscopy showing polyps--he does not believe any biopsies were obtained at that time. Until Saturday he felt fine after the colonoscopy. History Information - Allergies/Home Medication List Allergies/Adverse Reactions: No Known Allergies Allergy (Verified 11/18/17 04:32) Home Medications: Fluoxetine HCl [Prozac 40 mg] 40 mg PO HS 03/26/17 [Last Taken 03/25/17] Prozac 10 MG (*) 11/18/17 [Last Taken Unknown] Vyvanse 11/18/17 [Last Taken Unknown] I have personally reviewed and updated: family history, medical history, social history, surgical history - Past Medical History psychiatric history (anxiety/depression/adhd) Additional medical history: IBS - Surgical History Additional surgical history: hand surgery - Family History Additional family history: aunts/uncles on both sides with UC/crohn's. mother with GB issues - Social History Smoking Status: Current every day smoker Alcohol Use: Occasionally Drug Use: None Additional social history: , 2 kids Review of Systems Review of Systems: ROS: 10pt was reviewed & negative except for what was stated in HPI & below Physical Exam Physical Exam: Temp Pulse Resp BP Pulse Ox 37.2 C 71 18 125/68 H 94 11/18/17 08:05 11/18/17 08:05 11/18/17 08:05 11/18/17 08:05 11/18/17 08:05 Constitutional: no apparent distress, appears nourished Eyes: PERRL Ears, Nose, Mouth, Throat: moist mucous membranes, hearing normal, ears appear normal Cardiovascular: regular rate and rhythym, no murmur, rub, or gallop, No edema Respiratory: no respiratory distress, no rales or rhonchi Gastrointestinal: normoactive bowel sounds, tenderness, No guarding, No rebound Genitourinary: no bladder tenderness Skin: warm, normal color Musculoskeletal: no muscle tenderness Neurologic: AAOx3 Psychiatric: interacting appropriately, not anxious, not encephalopathic Lab Data & Imaging Review 11/18/17 04:45 11/18/17 04:45 WBC 10.47 10^3/uL (3.80-9.50) H 11/18/17 04:45 RBC 5.35 10^6/uL (4.40-6.38) 11/18/17 04:45 Hgb 15.6 g/dL (13.7-17.5) 11/18/17 04:45 Hct 45.9 % (40.0-51.0) 11/18/17 04:45 MCV 85.8 fL (81.5-99.8) 11/18/17 04:45 MCH 29.2 pg (27.9-34.1) 11/18/17 04:45 MCHC 34.0 g/dL (32.4-36.7) 11/18/17 04:45 RDW 12.3 % (11.5-15.2) 11/18/17 04:45 Plt Count 329 10^3/uL (150-400) 11/18/17 04:45 MPV 10.0 fL (8.7-11.7) 11/18/17 04:45 Neut % (Auto) 72.1 % (39.3-74.2) 11/18/17 04:45 Lymph % (Auto) 16.9 % (15.0-45.0) 11/18/17 04:45 [place] % (Auto) 8.6 % (4.5-13.0) 11/18/17 04:45 Eos % (Auto) 2.1 % (0.6-7.6) 11/18/17 04:45 Baso % (Auto) 0.1 % (0.3-1.7) L 11/18/17 04:45 Nucleat RBC Rel Count 0.0 % (0.0-0.2) 11/18/17 04:45 Absolute Neuts (auto) 7.55 10^3/uL (1.70-6.50) H 11/18/17 04:45 Absolute Lymphs (auto) 1.77 10^3/uL (1.00-3.00) 11/18/17 04:45 Absolute Monos (auto) 0.90 10^3/uL (0.30-0.80) H 11/18/17 04:45 Absolute Eos (auto) 0.22 10^3/uL (0.03-0.40) 11/18/17 04:45 Absolute Basos (auto) 0.01 10^3/uL (0.02-0.10) L 11/18/17 04:45 Absolute Nucleated RBC 0.00 10^3/uL (0-0.01) 11/18/17 04:45 Immature Gran % 0.2 % (0.0-1.1) 11/18/17 04:45 Immature Gran # 0.02 10^3/uL (0.00-0.10) 11/18/17 04:45 Sodium 140 mEq/L (134-144) 11/18/17 04:45 Potassium 4.4 mEq/L (3.5-5.2) 11/18/17 04:45 Chloride 106 mEq/L (97-110) 11/18/17 04:45 Carbon Dioxide 19 mEq/l (22-31) L 11/18/17 04:45 Anion Gap 15 mEq/L (8-16) 11/18/17 04:45 BUN 14 mg/dL (7-23) 11/18/17 04:45 Creatinine 0.8 mg/dL (0.7-1.3) 11/18/17 04:45 Estimated GFR > 60 11/18/17 04:45 Glucose 109 mg/dL (70-100) H 11/18/17 04:45 Calcium 9.5 mg/dL (8.5-10.4) 11/18/17 04:45 Total Bilirubin 0.8 mg/dL (0.1-1.4) 11/18/17 04:45 AST 20 IU/L (17-59) 11/18/17 04:45 ALT 45 IU/L (21-72) 11/18/17 04:45 Alkaline Phosphatase 117 IU/L (38-126) 11/18/17 04:45 Total Protein 7.2 g/dL (6.3-8.2) 11/18/17 04:45 Albumin 4.0 g/dL (3.5-5.0) 11/18/17 04:45 Lipase 35 IU/L (23-300) 11/18/17 04:45 Visualized and Interpreted imaging results: Yes Interpretation: abd CT: partial SBO, dilated bowel LUQ Assessment & Plan Assessment: Partial small bowel obstruction (Acute) 37 yo M p/w n/v/abdominal pain and CT findings c/w partial SBO # n/v/abd pain: CT showing again dilated loops of bowel c/w partial SBO--now recurrent in just six months. Last episode presumed triggered by viral enteritis , however with such rapid recurrence query other underlying etiology. Patient has never had abdominal surgery, has had eval for Crohn's/UC in the past that was negative. At this time will check GI pathogen panel, consult general surgery , obtain further records from GI of the [facility]. Conservative mgmt with IVF, clear liquid diet and pain mgmt. Discussed with gen surg who is recommending a UGI w/SBFT for now for further evaluation. # diarrhea: in the setting of perhaps partial sbo and passing frequent watery stool distal to that, will check GI pathogen panel as above # IBS: again, with now 2 episodes of what appear to be sbo ? if this is truly IBD rather, may have some suggestion of that on UGI, again, will obtain records from GI when able # dispo: observation status, hopeful that this will improve over the next 24 hours but will need to see Patient new to my care. Old records reviewed and summarized as above. Care plan reviewed with general surgery as above.
[2017-11-18] MEDS ORDERED: LR 1,000 ML IV SCH (12:30)
[2017-11-18 12:43] VITALS: RESP 16
--- NOTE | 2017-11-18 15:03 | ASMTCMCOM ---
CM Note CM Note Notes: Patient admitted with a 2 day hx of diarrhea and abdominal pain - he is being worked up for a partial SBO v enteritis. He is and independent and will likely not have any discharge needs. CM can assist if so. Current CM Discharge plan: home with Date Signed: 11/18/2017 03:03 PM Electronically Signed By:Magali Ozuna RN
--- NOTE | 2017-11-18 16:43 | SOAPPROG ---
Downtime Inpatient MD Late Entry SOAP Note: SBFT shows contrast passing into colon at 2 hours/delayed transit likely due to narcotics No evidence of SBO Will defer further medical treatment and workup to Medicine Trial of diet ordered/re-consult surgery as needed. Yousif Garcia MD, FACS
[2017-11-19 05:12] LABS: % IMMATURE GRANULYOCYTES 0.2 % (0.0-1.1); ABSOLUTE IMMATURE GRANULOCYTES 0.01 10^3/uL (0.00-0.10); ADD DIFF? NO; ADD MORPH? NO; ADD SCAN? NO; ATYPICAL LYMPHOCYTE FLAG 0 (0-99); FRAGMENT RBC FLAG 0 (0-99); HEMATOCRIT 41.4 % (40.0-51.0); LEFT SHIFT FLG 0 (0-99); LIPEMIA HEMOLYSIS FLAG 90 (0-99); MEAN CELL HEMOGLOBIN 30.2 pg (27.9-34.1); MEAN CELL HEMOGLOBIN CONCENTR. 33.8 g/dL (32.4-36.7); MEAN CELL VOLUME 89.4 fL (81.5-99.8); MEAN PLATELET VOLUME 10.3 fL (8.7-11.7); PLATELET CLUMPS FLAG 0 (0-99); PLATELET COUNT 251 10^3/uL (150-400); RED BLOOD CELL COUNT 4.63 10^6/uL (4.40-6.38); RED CELL DISTRIBUTION WIDTH 12.4 % (11.5-15.2)
[2017-11-19 05:33] LABS: ANION GAP 11 mEq/L (8-16); CARBON DIOXIDE 24 mEq/l (22-31); CHLORIDE 107 mEq/L (97-110); CREATININE 0.9 mg/dL (0.7-1.3); GLOMERULAR FILTRATION RATE > 60; GLUCOSE 102 mg/dL (70-100); POTASSIUM 4.3 mEq/L (3.5-5.2); SODIUM 142 mEq/L (134-144)
[2017-11-19 11:01] VITALS: BP 120/89; PULSE 93; TEMP 97.8; O2SAT 95
--- NOTE | 2017-11-19 12:21 | ASDISCHSUM ---
Discharge Information Plan Status:Home with No Needs Medically Cleared to Leave: Discharge Date:11/19/2017 11:23 AM CM D/C Disposition:Home, Routine, Self-Care ADT D/C Disposition:Home, Routine, Self-Care Projected Discharge Date:11/19/2017 11:23 AM Transportation at D/C:Family Discharge Delay Reason: Follow-Up Date:11/19/2017 11:23 AM Discharge Slot: Final Diagnosis: Placement Information Patient Contact Information Contact Name:MADELYN Relationship: Address:[address] Work Phone: [facility]:[place] Alternate Phone: [facility]/Zip Code:[place] [address] Email: Financial Information Financial Class:[facility] Primary Plan Desc:[facility] Primary Plan Number:[id number] Secondary Plan Desc: Secondary Plan Number: Assessment Information [facility] CM Progress Note CM Note CM Note Notes: Patient admitted with a 2 day hx of diarrhea and abdominal pain - he is being worked up for a partial SBO v enteritis. He is and independent and will likely not have any discharge needs. CM can assist if so. Current CM Discharge plan: home with Date Signed: 11/18/2017 03:03 PM Electronically Signed By:Magali Ozuna RN Intervention Information
--- NOTE | 2017-11-19 15:23 | PDDCSUM ---
Discharge Summary Discharge Summary: Dates of service 11/18-11/19/17 Consultations: general surgery Procedures performed: abd CT Hospital course by problem: 37 yo M p/w n/v/abdominal pain and CT findings c/w partial SBO # n/v/abd pain: CT showing again dilated loops of bowel c/w partial SBO--now recurrent in just six months. Last episode presumed triggered by viral enteritis , upper gi w/sbft normal and overnight sxs have completely resolved. Again, concern that another process is contributing to this recurrence--discussed at length with patient that he should f/u with GI in the coming weeks for further evaluation and w/u. # diarrhea: in the setting of perhaps partial sbo and passing frequent watery stool distal to that, resolved completely # IBS: again, with now 2 episodes of what appear to be sbo ? if this is truly IBD rather, may have some suggestion of that on UGI, again, will obtain records from GI when able # dispo: dc home f/u with pcp and GI--to schedule with GI in the coming weeks as above > 35 minutes spent in dc, more than half in coordination of care
[2017-11-19] MEDS ORDERED: FLUoxetine 20 MG CAP PO SCH (21:00)
== END 2017-11-19 11:23 | disposition home or self-care (01) ==
LOC: CED 04:22 → CEDHOLD 06:31 → F3E 07:58
PROVIDERS: ADMIT Family Medicine; ATTEND Family Medicine
DX: K56.690 Other partial intestinal obstruction (principal); F17.200 Nicotine dependence, unspecified, uncomplicated
CPT/HCPCS: 74020; 74177; 74250; G0378; 80053-PO; 83690-PO; 85025-PO; 96374; J1885; J2405; Q9967